=== PATIENT | male | born 1955 | race Two or more races ===

== ENCOUNTER → 2025-07-20 | Outpatient (CLI) | payer MEDICARE, SELFPAY ==
--- NOTE | 2025-07-20 12:00 | XR_ITS ---
Examination: Thyroid sonography complete TECHNIQUE: Grayscale sonographic images thyroid lobes Date and time: July 20, 2025 1120 hours INDICATIONS: Abnormal thyroid function tests on laboratory examination 12 days ago. FINDINGS: Right thyroid 6.1 cm Midpole nodule 12 x 9 x 12 mm Left thyroid 5.6 cm Upper pole nodule vascular 17 x 8 x 10 mm Lower pole nodule 12 x 18 x 17 mm IMPRESSION: Thyroid nodules as above Consider ultrasound-guided fine-needle aspiration of the upper and lower pole left thyroid nodules
== END | disposition home or self-care (01) ==
LOC: CDIM 11:15
DX: E04.2 Nontoxic multinodular goiter (principal)
CPT/HCPCS: 76536